=== PATIENT | female | born 1975 | race Caucasian/White ===

== ENCOUNTER 2024-07-27 13:31 | Outpatient (RCR) | payer OTHER ==
[~2024-07-27 13:31] MED LIST: ARTIFICAL TEARS OU; ARTISOL10 OP; ASPI325T OR; BISA10SU2 RE; BLISTEX TOP; COLACE OR; CORE6.25 OR; COUM1TAB18 OR; FENT1DIS15 TD; GABAPENTIN OR; MIRALEX OR; No Historical Meds; PENICILLIN VK OR; PROT1TAB2 OR; SENNA TAB OR; TYLENOL OR; VICO5TAB OR; VICODIN OR; [UNRECOGNIZED DRUG - REMARK]
== END 2024-08-01 ==
LOC: M PT 13:31
PROVIDERS: ATTEND Family Medicine
DX: Z89.512 Acquired absence of left leg below knee (principal); S88.911D Complete traumatic amputation of right lower leg, level unspecified, subsequent encounter; L03.115 Cellulitis of right lower limb